=== PATIENT | male | born 1990 | race Caucasian/White ===

== ENCOUNTER 2023-09-26 00:50 | Emergency (ER) | payer OTHER ==
[2023-09-26 00:57] VITALS: BP 133/87; PULSE 70; RESP 20; TEMP 98.2; BMI 35.9
[2023-09-26] MEDS ORDERED: ACETAMINOPHEN 500 MG TABLET (FP) ONE (01:30)
[2023-09-26] MEDS: ACETAMINOPHEN 500 MG TABLET (FP) PO ONE (01:37)
[2023-09-26] MEDS: LIDOCAINE HCL 1%, 10 MG/ML (50 mL VIAL) SQ ONE (03:15)
[2023-09-26] MEDS ORDERED: LIDOCAINE HCL/PF 1% SDV 5ML VIAL ONE (03:17)
== END 2023-09-26 04:08 | disposition home or self-care (01) ==
LOC: JER 00:50
PROC: 0S9D3ZZ Drainage of Left Knee Joint, Percutaneous Approach (ICD-10-PCS; principal; 2023-09-26)
DX: M25.462 Effusion, left knee (principal); M25.562 Pain in left knee; W19.XXXA Unspecified fall, initial encounter
CPT/HCPCS: 73564-TC-LT-FY; 99284-25